=== PATIENT | female | born 2000 | race Caucasian/White ===

== ENCOUNTER 2020-03-20 15:55 | Outpatient (REF) | payer OTHER, SELFPAY ==
--- NOTE | 2020-03-20 15:00 | PAPFT_PTH ---
PATIENT: DEWAYNE DIETZ LOC: [facility] U#:[id number] AGE/SX: 19/F ROOM: RE03/20/[address]: Ad Munguia NP : 2000 BED: DIS: 03/20/2020 SPEC #: [id number] RECD: 03/21/20 12:55 STATUS: KEY [place] #: [id number] GINETTE: 03/20/20 15:[address]: Ad Munguia DEPT: [facility] Cytology RECD BY: Danyell Marie Tissues: 1 - CX/ENDOCX FOR PAP SMEARS Procedures: PAP THIN PREP/[facility] Screening Comments: [id number]
== END 2020-03-20 16:15 ==
LOC: LBN 15:55
PROVIDERS: PCP Nurse Practitioner Family; Visit Provider Nurse Practitioner Family
DX: Z12.4 Encounter for screening for malignant neoplasm of cervix (principal)
CPT/HCPCS: 88142